=== PATIENT | female | born 1995 | race Caucasian/White ===

== ENCOUNTER 2021-03-07 12:34 | Emergency (ER) | payer SELFPAY ==
[~2021-03-07] VITALS: Ht 167.6 cm; Wt 77.1 kg
[2021-03-07] MEDS ORDERED: IV NORMAL SALINE 1000 ML BAG IV ONE (12:45)
--- NOTE | 2021-03-07 12:47 | NUR ---
PT IS IN ROOM #1A. DR CARVAJAL EVALUATED THE PT.
[2021-03-07] MEDS ORDERED: ONDANSETRON 4 MG/2 ML VIAL IV ONE (13:00)
[2021-03-07] MEDS ORDERED: HYDROMORPHONE 1 MG/1 ML DISP.SYRIN IV ONE ×2 (13:00→13:45)
[2021-03-07 13:16] LABS: BASOPHILS % (AUTO) 0.3 % (0.0-2.0); HEMATOCRIT 36.7 % (31.2-41.9); HEMOGLOBIN 12.4 g/dL (10.9-14.3); LYMPHOCYTES # (AUTO) 1.1 K/uL (20.0-40.0); LYMPHOCYTES % (AUTO) 12.6 % (20.5-51.5); MEAN CORPUSCULAR HEMOGLOBIN 26.9 uug (24.7-32.8); MEAN CORPUSCULAR HGB CONC 34 g/dL (32.3-35.6); MEAN CORPUSCULAR VOLUME 79.7 fL (75.5-95.3); MONOCYTES # (AUTO) 0.4 K/uL (2.0-10.0); MONOCYTES % (AUTO) 4.2 % (0.0-11.0); NEUTROPHILS % (AUTO) 82.9 % (38.5-71.5); PLATELET COUNT (AUTO) 284 K/uL (179-408); RED BLOOD CELL COUNT(AUTO) 4.61 MIL/uL (3.63-4.92); WHITE BLOOD COUNT (AUTO) 8.5 K/uL (3.8-11.8)
[2021-03-07] MEDS ORDERED: HYDROMORPHONE 1 MG/1 ML DISP.SYRIN ONE ×2 (13:18→13:53)
[2021-03-07] MEDS ORDERED: ONDANSETRON 4 MG/2 ML VIAL ONE (13:18)
[2021-03-07 13:20] LABS: CARBON DIOXIDE 25 mmol/L (21-32); CHLORIDE 105 mmol/L (98-107); CREATININE 0.7 mg/dL (0.6-1.3); GLUCOSE 104 mg/dL (74-106); POTASSIUM 3.4 mmol/L (3.5-5.1); UREA NITROGEN, BLOOD 6 mg/dL (7-18)
[2021-03-07 13:26] LABS: ALANINE AMINOTRANSFERASE 22 U/L (14-59); ALKALINE PHOSPHATASE 95 U/L (50-136); ASPARTATE AMINOTRANSFERASE 19 U/L (15-37); BILIRUBIN,DIRECT 0.2 mg/dL (0.0-0.2); LIPASE 36 U/L (73-393); TOTAL PROTEIN, SERUM 6.9 g/dL (6.4-8.2)
[2021-03-07 13:44] LABS: *BILIRUBIN,URIN NEGATIVE (NEGATIVE); *BLOOD, URINE NEGATIVE (NEGATIVE); *CLARITY,URINE CLOUDY (CLEAR); *COLOR,URINE LIGHT YELLOW (YELLOW); *KETONES,URINE NEGATIVE (NEGATIVE); *UROBILINOGEN,URINE 0.2 E.U./dl (NORMAL); LEUKOCYTE ESTERASE ,URINE TRACE (NEGATIVE); NITRITE, URINE NEGATIVE (NEGATIVE); UGLUCOSE NEGATIVE (NEGATIVE)
[2021-03-07] MEDS ORDERED: POTASSIUM BICARBONATE/CIT AC 25 MEQ TABLET.EFF PO ONE (13:45)
[2021-03-07] MEDS ORDERED: diphenhydrAMINE 50 MG/1 ML VIAL IM ONE (13:45)
[2021-03-07] MEDS ORDERED: HALOPERIDOL LACTATE 5 MG/1 ML VIAL IV ONE (13:45)
[2021-03-07 13:46] LABS: *URINE HCG, QUAL NEG (NEGATIVE)
[2021-03-07] MEDS ORDERED: SWABABLE VALVE TRANSFER SET EA MC ONE (13:51)
[2021-03-07] MEDS ORDERED: IOHEXOL 300MG/ML 100 ML INFUS..BTL ONE (13:52)
[2021-03-07] MEDS ORDERED: IV NORMAL SALINE 250 ML IV ONE (13:52)
[2021-03-07] MEDS ORDERED: HALOPERIDOL LACTATE 5 MG/1 ML VIAL ONE (13:54)
[2021-03-07] MEDS ORDERED: diphenhydrAMINE 50 MG/1 ML VIAL ONE (13:54)
[2021-03-07] MEDS ORDERED: POTASSIUM BICARBONATE/CIT AC 25 MEQ TABLET.EFF ONE (13:54)
[2021-03-07] MEDS ORDERED: ONDA4TAB11 PO (14:42)
--- NOTE | 2021-03-07 14:52 | NUR ---
PT WAS D/C'd TO HOME . D/C INSTRUCTIONS GIVEN TO THE PT BY DR HINTON.
--- NOTE | 2021-03-07 14:55 | NUR ---
PT DENIES PAIN. NO N/V. GAIT IS STABLE. NO DIZZINESS, NO SOB.
[2021-03-07 14:58] VITALS: BP 108/67
[2021-03-07 16:38] LABS: BACTERIA,URINE NONE SEEN /HPF (NONE SEEN); RBC,URINE 0-3 /HPF (0-3); SQUAMOUS EPITHELIAL CELL,UR FEW /HPF (NONE SEEN); WBC,URINE 0-3 /HPF (0-3)
== END 2021-03-07 15:01 | disposition home or self-care (01) ==
LOC: ER 12:34
DX: R10.31 Right lower quadrant pain (principal); R11.2 Nausea with vomiting, unspecified; R19.7 Diarrhea, unspecified; C53.9 Malignant neoplasm of cervix uteri, unspecified; Z92.21 Personal history of antineoplastic chemotherapy; Z92.3 Personal history of irradiation; Z88.6 Allergy status to analgesic agent; Z88.5 Allergy status to narcotic agent; Z80.41 Family history of malignant neoplasm of ovary; Z80.3 Family history of malignant neoplasm of breast; F41.9 Anxiety disorder, unspecified; G89.29 Other chronic pain
CPT/HCPCS: 36415; 74177; 76856; 76937; 80048; 80076; 81001; 83690; 84702; 84703; 85025; 87086; 96361; 96372; 96374; 96375; 96376; 99285; J1170 ×2; J1200; J1630; J2405; Q9967; A4663; J7030; J7050

== ENCOUNTER 2021-03-23 19:03 | Inpatient (IN) | payer SELFPAY ==
[~2021-03-23] VITALS: Ht 167.6 cm; Wt 65.8 kg
[~2021-03-23 19:03] MED LIST: ONDA4TAB11 PO
[2021-03-23] MEDS ORDERED: IV NORMAL SALINE 1000 ML BAG IV ONE (19:45)
[2021-03-23] MEDS ORDERED: HYDROMORPHONE 1 MG/1 ML DISP.SYRIN IV ONE ×2 (19:45→20:30)
[2021-03-23] MEDS ORDERED: ONDANSETRON 4 MG/2 ML VIAL IV ONE (19:45)
[2021-03-23] MEDS ORDERED: HYDROMORPHONE 1 MG/1 ML DISP.SYRIN ONE (20:11)
[2021-03-23] MEDS ORDERED: ONDANSETRON 4 MG/2 ML VIAL ONE (20:11)
[2021-03-23 20:13] LABS: CARBON DIOXIDE 27 mmol/L (21-32); CHLORIDE 103 mmol/L (98-107); CREATININE 0.8 mg/dL (0.6-1.3); GLUCOSE 113 mg/dL (74-106); POTASSIUM 3.9 mmol/L (3.5-5.1); UREA NITROGEN, BLOOD 6 mg/dL (7-18)
[2021-03-23 20:17] LABS: HEMATOCRIT 39.7 % (31.2-41.9); MEAN CORPUSCULAR HEMOGLOBIN 26.8 uug (24.7-32.8); MEAN CORPUSCULAR VOLUME 79.7 fL (75.5-95.3); PLATELET COUNT (AUTO) 364 K/uL (179-408)
[2021-03-23 20:24] LABS: ALANINE AMINOTRANSFERASE 19 U/L (14-59); ALKALINE PHOSPHATASE 100 U/L (50-136); ASPARTATE AMINOTRANSFERASE 15 U/L (15-37); BILIRUBIN,DIRECT 0.3 mg/dL (0.0-0.2); BILIRUBIN,TOTAL 1.8 mg/dL (0.2-1.0); LIPASE 46 U/L (73-393); TOTAL PROTEIN, SERUM 7.6 g/dL (6.4-8.2)
[2021-03-23] MEDS ORDERED: METOCLOPRAMIDE HCL 10 MG/2 ML VIAL IV ONE (20:30)
[2021-03-23] MEDS ORDERED: METOCLOPRAMIDE HCL 10 MG/2 ML VIAL ONE (20:40)
[2021-03-23] MEDS ORDERED: diphenhydrAMINE 50 MG/1 ML VIAL ONE (20:40)
[2021-03-23] MEDS ORDERED: HYDROMORPHONE 2 MG/1 ML DISP.SYRIN ONE (20:41)
[2021-03-23] MEDS ORDERED: diphenhydrAMINE 50 MG/1 ML VIAL IV ONE (20:45)
[2021-03-23] MEDS ORDERED: IOHEXOL 300MG/ML 100 ML INFUS..BTL ONE (20:50)
[2021-03-23] MEDS ORDERED: SWABABLE VALVE TRANSFER SET EA MC ONE (20:50)
[2021-03-23] MEDS ORDERED: IV NORMAL SALINE 250 ML IV ONE (20:50)
[2021-03-23] MEDS ORDERED: ONDA4TAB5 PO (21:28)
[2021-03-23] MEDS ORDERED: DICY20TA11 PO (21:28)
[2021-03-23] MEDS ORDERED: TRAM50TA2 PO (21:28)
[2021-03-23] MEDS ORDERED: QUET400T PO (22:08)
[2021-03-23] MEDS ORDERED: DICYCLOMINE HCL 20 MG TABLET PO PRN (23:45)
[2021-03-23] MEDS ORDERED: MAGNESIUM HYDROXIDE 30 ML LIQUID UDC PO PRN (23:45)
[2021-03-23] MEDS ORDERED: ACETAMINOPHEN 325 MG TABLET PO PRN (23:45)
[2021-03-23] MEDS ORDERED: Z GUARD REMEDY PASTE 57 GM TUBE TOP PRN (23:45)
[2021-03-24] MEDS: HYDROMORPHONE 1 MG/1 ML DISP.SYRIN IV PRN ×3 (00:17→09:03)
[2021-03-24] MEDS: IV NS 1000 ML 1,000 ML IV SCH ×3 (00:18→20:45)
[2021-03-24] MEDS: ONDANSETRON 4 MG/2 ML VIAL IV PRN ×3 (00:39→16:49)
[2021-03-24] MEDS ORDERED: ZOLPIDEM 5 MG TABLET PO ONE (02:15)
[2021-03-24 06:50] VITALS: BP 128/78
[2021-03-24 06:52] VITALS: BP 118/65
[2021-03-24 07:14] LABS: HEMATOCRIT 34.8 % (31.2-41.9); MEAN CORPUSCULAR HEMOGLOBIN 27.4 uug (24.7-32.8); MEAN CORPUSCULAR VOLUME 80.2 fL (75.5-95.3); PLATELET COUNT (AUTO) 294 K/uL (179-408)
[2021-03-24 07:19] LABS: BILIRUBIN,DIRECT 0.3 mg/dL (0.0-0.2); BILIRUBIN,TOTAL 1.7 mg/dL (0.2-1.0); CREATININE 0.6 mg/dL (0.6-1.3); MAGNESIUM 2.2 mg/dL (1.8-2.4); PHOSPHOROUS 3.6 mg/dL (2.5-4.9); POTASSIUM 3.5 mmol/L (3.5-5.1); TOTAL PROTEIN, SERUM 6.4 g/dL (6.4-8.2)
[2021-03-24 08:23] LABS: *BILIRUBIN,URIN NEGATIVE (NEGATIVE); *BLOOD, URINE NEGATIVE (NEGATIVE); *CLARITY,URINE CLEAR (CLEAR); *COLOR,URINE YELLOW (YELLOW); *KETONES,URINE TRACE (NEGATIVE); *UROBILINOGEN,URINE 0.2 E.U./dl (NORMAL); LEUKOCYTE ESTERASE ,URINE TRACE (NEGATIVE); NITRITE, URINE NEGATIVE (NEGATIVE); PH,URINE 6.5 (5.0-8.0); UGLUCOSE NEGATIVE (NEGATIVE)
[2021-03-24 11:58] VITALS: BP 105/48
[2021-03-24] MEDS ORDERED: QUET200T PO (12:16)
[2021-03-24] MEDS ORDERED: LORA2TAB95 PO (12:19)
[2021-03-24] MEDS ORDERED: OXYC-133 PO (12:20)
[2021-03-24] MEDS: HYDROMORPHONE 2 MG/1 ML DISP.SYRIN IV PRN ×3 (13:05→20:49)
[2021-03-24 16:13] VITALS: BP 111/64
[2021-03-24 16:53] LABS: BACTERIA,URINE NONE SEEN /HPF (NONE SEEN); RBC,URINE 0-3 /HPF (0-3); SQUAMOUS EPITHELIAL CELL,UR FEW /HPF (NONE SEEN)
[2021-03-24] MEDS ORDERED: QUETIAPINE FUMARATE 200 MG TABLET PO SCH (18:00)
[2021-03-24] MEDS: OXYCODONE/APAP 5-325 MG TABLET PO PRN ×2 (19:02→23:33)
[2021-03-24 20:15] VITALS: BP 127/69
[2021-03-24] MEDS: QUETIAPINE FUMARATE 200 MG TABLET PO SCH (21:46)
[2021-03-25] MEDS: HYDROMORPHONE 2 MG/1 ML DISP.SYRIN IV PRN ×5 (00:55→21:26)
[2021-03-25] MEDS: ONDANSETRON 4 MG/2 ML VIAL IV PRN ×3 (01:25→17:03)
[2021-03-25] MEDS: OXYCODONE/APAP 5-325 MG TABLET PO PRN ×4 (03:17→18:58)
[2021-03-25 04:10] VITALS: BP 102/56
[2021-03-25] MEDS: IV NS 1000 ML 1,000 ML IV SCH ×2 (06:32→14:58)
[2021-03-25 11:45] VITALS: BP 119/74
[2021-03-25 15:45] VITALS: BP 111/77
[2021-03-25 20:00] VITALS: BP 124/61
[2021-03-25] MEDS: QUETIAPINE FUMARATE 200 MG TABLET PO SCH (21:24)
[2021-03-26] MEDS: OXYCODONE/APAP 5-325 MG TABLET PO PRN (00:05)
[2021-03-26] MEDS: HYDROMORPHONE 2 MG/1 ML DISP.SYRIN IV PRN ×4 (01:22→18:43)
[2021-03-26] MEDS: IV NS 1000 ML 1,000 ML IV SCH ×3 (02:00→21:06)
[2021-03-26 04:00] VITALS: BP 113/68
[2021-03-26] MEDS: ONDANSETRON 4 MG/2 ML VIAL IV PRN (09:47)
[2021-03-26 11:53] VITALS: BP 121/67
[2021-03-26] MEDS ORDERED: OXYCODONE HCL 5 MG TABLET PO PRN (13:15)
[2021-03-26 15:56] VITALS: BP 120/67
[2021-03-26] MEDS ORDERED: OXYC5TAB3 PO (17:36)
[2021-03-26 20:00] VITALS: BP 124/77
[2021-03-26] MEDS: QUETIAPINE FUMARATE 200 MG TABLET PO SCH (20:34)
== END 2021-03-26 21:58 | disposition home or self-care (01) | DRG 93 ==
LOC: ER 19:03 → MEDSURG3 23:51
PROVIDERS: ADMIT Hospitalist; ATTEND Hospitalist
DX: G89.4 Chronic pain syndrome (principal); R10.9 Unspecified abdominal pain; Z85.41 Personal history of malignant neoplasm of cervix uteri; Z92.3 Personal history of irradiation; Z92.21 Personal history of antineoplastic chemotherapy; Z79.891 Long term (current) use of opiate analgesic; F41.9 Anxiety disorder, unspecified; Z20.822 Contact with and (suspected) exposure to COVID-19; Z98.890 Other specified postprocedural states
CPT/HCPCS: 36415; 76856; 83690; 83735; 84100; 85025; G0378; J1170; J1200; J2405; J2765; J7030; J7050; Q9967

== ENCOUNTER 2021-04-12 18:21 | Emergency (ER) | payer MEDICAID ==
[~2021-04-12] VITALS: Ht 167.6 cm; Wt 63.5 kg
[~2021-04-12 18:21] MED LIST changes: +LORA2TAB95 PO; -ONDA4TAB11 PO; +ONDA4TAB5 PO; +OXYC5TAB3 PO; +QUET200T PO
--- NOTE | 2021-04-12 19:15 | NUR ---
Pt. came today from home for severe right lower quadrant pain that radiates to the back. Pt. states she has also had vomiting and diarrhea. Pts. vitals are stable. Will continue to monitor.
[2021-04-12] MEDS ORDERED: ONDANSETRON ODT 4 MG TAB.RAPDIS SL ONE ×2 (19:30→20:30)
[2021-04-12 19:38] LABS: HEMATOCRIT 38.1 % (31.2-41.9); MEAN CORPUSCULAR HEMOGLOBIN 27.1 uug (24.7-32.8); MEAN CORPUSCULAR VOLUME 80.3 fL (75.5-95.3); PLATELET COUNT (AUTO) 309 K/uL (179-408)
[2021-04-12 19:41] LABS: CARBON DIOXIDE 24 mmol/L (21-32); CHLORIDE 106 mmol/L (98-107); CREATININE 0.7 mg/dL (0.6-1.3); GLUCOSE 77 mg/dL (74-106); POTASSIUM 3.9 mmol/L (3.5-5.1); UREA NITROGEN, BLOOD 6 mg/dL (7-18)
[2021-04-12 19:46] LABS: ALANINE AMINOTRANSFERASE 10 U/L (14-59); ALKALINE PHOSPHATASE 113 U/L (50-136); ASPARTATE AMINOTRANSFERASE 11 U/L (15-37); BILIRUBIN,DIRECT 0.2 mg/dL (0.0-0.2); BILIRUBIN,TOTAL 1.5 mg/dL (0.2-1.0); TOTAL PROTEIN, SERUM 7.9 g/dL (6.4-8.2)
[2021-04-12] MEDS ORDERED: ONDANSETRON ODT 4 MG TAB.RAPDIS ONE ×2 (19:57→20:42)
[2021-04-12] MEDS ORDERED: OXYCODONE/APAP 5-325 MG TABLET PO ONE ×2 (20:30→21:45)
[2021-04-12] MEDS ORDERED: OXYCODONE/APAP 5-325 MG TABLET ONE (20:42)
[2021-04-12 20:51] LABS: *BILIRUBIN,URIN NEGATIVE (NEGATIVE); *BLOOD, URINE NEGATIVE (NEGATIVE); *CLARITY,URINE CLEAR (CLEAR); *COLOR,URINE LIGHT YELLOW (YELLOW); *KETONES,URINE NEGATIVE (NEGATIVE); *UROBILINOGEN,URINE 0.2 E.U./dl (NORMAL); LEUKOCYTE ESTERASE ,URINE NEGATIVE (NEGATIVE); NITRITE, URINE NEGATIVE (NEGATIVE); PH,URINE 6.5 (5.0-8.0); UGLUCOSE NEGATIVE (NEGATIVE)
[2021-04-12] MEDS ORDERED: ONDA4TAB11 PO (21:48)
--- NOTE | 2021-04-12 21:55 | NUR ---
Patient discharged to home in stable condition. Written and verbal after care instructions given. Patient verbalizes understanding of instructions. Stressed follow up or return to ER for worsening s/s. Patient walked out of ER with steady gait. Pt. showed no acute signs of distress, VSS, all belongings taken.
[2021-04-12 22:02] VITALS: BP 137/88
== END 2021-04-12 22:04 | disposition home or self-care (01) ==
LOC: ER 18:23
DX: R10.31 Right lower quadrant pain (principal); Z85.41 Personal history of malignant neoplasm of cervix uteri; Z92.21 Personal history of antineoplastic chemotherapy; Z82.49 Family history of ischemic heart disease and other diseases of the circulatory system; N88.8 Other specified noninflammatory disorders of cervix uteri; G89.29 Other chronic pain
CPT/HCPCS: 36415; 76856; 85025; 87086; A4663; J7030; Q0162